=== PATIENT | female | born 1995 | race African-American/Black ===

== ENCOUNTER 2017-03-31 12:06 | Emergency (ER) | payer BC, MEDICAID ==
[~2017-03-31 12:06] MED LIST: BACTRIM DS1 TAB PO; FLAGYL500 M1 PO; IBUPROFEN IB200 M1 PO; LABETALOL HCL100 MG PO; MOTRIN800 MG PO; NAUSEA MED RC; NO HOME MEDICATION XX; OXYCODONE/APAP PO; PRENAPLUS TABL1 EACH PO; PRENATAL1 EACH PO; RISPERDAL; TAMIFLU75 MG PO; TUMS500 MG PO; TYLENOL EXTRA500 M1; TYLENOL650 MG PO; VISTARIL50 MG PO; ZOFRAN ODT4 MG; ZOFRAN ODT4 MG/UDTAB PO; [UNRECOGNIZED DRUG - OTHER] PO
[2017-03-31 16:28] LABS: URINE BILIRUBIN NEGATIVE (NEG); URINE BLOOD NEGATIVE (NEG); URINE GLUCOSE (UA) NEGATIVE (NEG); URINE KETONE NEGATIVE (NEG); URINE LEUKOCYTE ESTERASE NEGATIVE (NEG); URINE NITRITE NEGATIVE (NEG); URINE PROTEIN NEGATIVE (NEG)
[2017-03-31 16:30] LABS: URINE APPEARANCE CLEAR; URINE COLOR YELLOW
== END 2017-03-31 17:08 ==
LOC: EDMED 12:06
PROVIDERS: Physician Assistant
DX: O26.891 Other specified pregnancy related conditions, first trimester (principal); R10.2 Pelvic and perineal pain; O99.331 Smoking (tobacco) complicating pregnancy, first trimester; F17.210 Nicotine dependence, cigarettes, uncomplicated; Z3A.00 Weeks of gestation of pregnancy not specified; Z98.890 Other specified postprocedural states; Z85.43 Personal history of malignant neoplasm of ovary